=== PATIENT | male | born 1975 | race African-American/Black ===

== ENCOUNTER 2021-12-25 14:16 | Emergency (ER) | payer OTHER ==
[~2021-12-25 14:16] MED LIST: ESCITALOPRAM OX10 MG PO; FLEXERIL10 MG PO; FLONASE ALLER15.8 ML; IBUPROFEN800 MG PO; KEFLEX500 MG PO; LISINOPRIL-HCT1 EAC1 PO; NAPROXEN500 MG PO; ONDANSETRON ODT4 MG SL; PERCOCET 5-3251 EACH PO; PREDNISONE 20MG20 MG PO; SINEQUAN10 MG PO; SINGULAIR10 MG PO; [UNRECOGNIZED DRUG - REMARK]
[2021-12-25] MEDS ORDERED: ACETAMINOPHEN-1 EAC1 PO (18:49)
== END 2021-12-25 18:00 | disposition home or self-care (01) ==
LOC: FER 14:16
DX: S83.91XA Sprain of unspecified site of right knee, initial encounter (principal); S83.92XA Sprain of unspecified site of left knee, initial encounter; S93.402A Sprain of unspecified ligament of left ankle, initial encounter; Z28.310 Unvaccinated for COVID-19; X58.XXXA Exposure to other specified factors, initial encounter
CPT/HCPCS: 99283

== ENCOUNTER 2021-12-25 18:32 | Emergency (ER) | payer OTHER ==
[2021-12-25] MEDS ORDERED: ACETAMINOPHEN-1 EAC1 PO (18:49)
== END 2021-12-25 19:10 | disposition home or self-care (01) ==
LOC: FER 18:32
DX: S93.402D Sprain of unspecified ligament of left ankle, subsequent encounter (principal)
CPT/HCPCS: 99281

== ENCOUNTER 2021-12-26 21:31 | Emergency (ER) | payer OTHER ==
[~2021-12-26 21:31] MED LIST changes: +ACETAMINOPHEN-1 EAC1 PO
[2021-12-26 22:54] LABS: BASOPHIL 0.3 % (0-2); EOSINOPHIL 0.9 % (0-5); HCT 43.7 % (42.0-52.0); HGB 15.1 g/dl (13.2-18.0); LYMPHOCYTE 28.6 % (15-48); MCH 31.6 pg (25.0-31.0); MCHC 34.6 g/dL (32.0-36.0); MCV 91.4 fL (78.0-100.0); MONOCYTE 9.6 % (0-12); MPV 11.1 fL (6.0-9.5); NEUTROPHIL 60.4 % (41-80); NRBC 0; PLT 209 K/uL (150-400); RBC 4.78 M/uL (4.70-6.00); RDW 12.7 % (11.5-14.0); WBC 9.1 K/uL (4.0-10.5)
[2021-12-26 23:24] LABS: ACETAMINOPHEN (TYLENOL) < 2.0 ug/mL (10.0-30.0); ALBUMIN 4.1 g/dL (3.4-5.0); ALKALINE PHOSHATASE 125 U/L (46-116); ALT 102 U/L (16-63); AST 52 U/L (15-37); BILIRUBIN - TOTAL 0.3 mg/dL (0.2-1.0); BUN 29 mg/dL (7-18); BUN/CREAT RATIO (CALC) 26.6 RATIO; CHLORIDE 106 mmol/L (98-107); CO2 (BICARBONATE) 26 mmol/L (21-32); CREATININE 1.09 mg/dL (0.67-1.17); GLOBULIN (CALCULATION) 3.8 g/dL; GLUCOSE 111 mg/dL (74-106); POTASSIUM 3.9 mmol/L (3.5-5.1); TOTAL PROTEIN 7.9 g/dL (6.4-8.2)
[2021-12-27 00:15] LABS: CORONAVIRUS 2019 SARS-COV-2 NEGATIVE (NEGATIVE); INFLUENZA A NAA NEGATIVE (NEGATIVE)
[2021-12-27 06:14] LABS: AMPHETAMINES POSITIVE (NEGATIVE); BARBITURATES NEGATIVE (NEGATIVE); ECSTASY (MDMA) NEGATIVE (NEGATIVE); MARIJUANA (THC) POSITIVE (NEGATIVE); METHADONE NEGATIVE (NEGATIVE); OPIATES POSITIVE (NEGATIVE); OXYCODONE NEGATIVE (NEGATIVE)
== END 2021-12-27 19:35 ==
LOC: FER 21:31
PROVIDERS: Emergency Medicine
DX: R45.851 Suicidal ideations (principal); R45.850 Homicidal ideations; M79.605 Pain in left leg; R79.89 Other specified abnormal findings of blood chemistry; I10 Essential (primary) hypertension; F17.200 Nicotine dependence, unspecified, uncomplicated; Z20.822 Contact with and (suspected) exposure to COVID-19
CPT/HCPCS: 36415; 73630; 80053; 80305; 85025; G0480; U0002